=== PATIENT | female | born 1955 | race Caucasian/White ===

== ENCOUNTER 2019-01-15 16:32 | Emergency (ER) | payer OTHER ==
[~2019-01-15] VITALS: Ht 152.4 cm; Wt 67.2 kg
[~2019-01-15 16:32] MED LIST: AMLO-218 PO
[2019-01-15 16:38] VITALS: Ht 152.4 cm; Wt 67.2 kg
--- NOTE | 2019-01-15 18:35 | ERD ---
ER Documentation Chief Complaint Chief Complaint dizziness x 3 days today; increase blood pressure HPI The patient is a 63-year-old female, presenting to the ER because of dizziness this morning around 9 AM while she was eating, a similar symptom previously, denies blurred vision, syncope, near syncope, facial pain, neck pain, chest pain, dyspnea, abdominal pain, vomiting. She does not smoke nor drink. She used to take Norvasc 10 mg daily but stopped that about 2 years ago Past medical history: Hypertension, dyslipidemia Past surgical history: 2 ROS All systems reviewed and are negative except as per history of present illness. Medications Home Meds Active Scripts Amlodipine Besylate* (Norvasc*) 10 Mg Tablet, 10 MG PO DAILY, #30 TAB Prov:JAY DE LUNA MD 01/15/19 Allergies Allergies: Coded Allergies: No Known Allergy (Unverified , 01/15/19) Physical Exam Vitals Vital Signs Date Temp Pulse Resp B/P (MAP) Pulse Ox O2 O2 Flow FiO2 Time Delivery Rate 01/15/19 98.0 65 19 178/96 98 Room Air 19:57 (123) 01/15/19 98.0 59 20 203/92 97 16:38 (129) Physical Exam Const: No acute distress. Head: Atraumatic. Eyes: Normal Conjunctiva. ENT: Normal External Ears, Nose and Mouth. Neck: Full range of motion. No meningismus. Resp: Clear to auscultation bilaterally. Cardio: Regular rate and rhythm. Abd: Soft, non distended, normal bowel sounds, non tender. Skin: No petechiae or rashes. Back: No midline or flank tenderness. Ext: No cyanosis, or edema. Neur: Awake and alert. No focal deficit Psych: Normal Mood and Affect. Result Diagram: 01/15/19185401/15/191854 Results 24 hrs Laboratory Tests Test 01/15/19 18:50 01/15/19 18:55 Bedside Glucose 108 mg/dL White Blood Count 8.4 10^3/ul Red Blood Count 4.82 10^6/ul Hemoglobin 13.9 g/dl Hematocrit 43.9 % Mean Corpuscular Volume 91.1 fl Mean Corpuscular Hemoglobin 28.8 pg Mean Corpuscular Hemoglobin Concent 31.7 g/dl Red Cell Distribution Width 13.5 % Platelet Count 244 10^3/UL Mean Platelet Volume 10.8 fl Immature Granulocytes % 0.100 % Neutrophils % 36.8 % Lymphocytes % 52.7 % Monocytes % 7.9 % Eosinophils % 1.4 % Basophils % 1.1 % Nucleated Red Blood Cells % 0.0 /100WBC Immature Granulocytes # 0.010 10^3/ul Neutrophils # 3.1 10^3/ul Lymphocytes # 4.4 10^3/ul Monocytes # 0.7 10^3/ul Eosinophils # 0.1 10^3/ul Basophils # 0.1 10^3/ul Nucleated Red Blood Cells # 0.0 10^3/ul Prothrombin Time 12.7 Sec Prothrombin Time Ratio 1.0 INR International Normalized Ratio 0.94 Activated Partial Thromboplast Time 30.9 Sec Sodium Level 143 mmol/L Potassium Level 3.9 mmol/L Chloride Level 105 mmol/L Carbon Dioxide Level 28 mmol/L Anion Gap 10 Blood Urea Nitrogen 13 mg/dl Creatinine 0.59 mg/dl Est Glomerular Filtrat Rate mL/min > 60 mL/min Glucose Level 106 mg/dl Calcium Level 9.3 mg/dl Troponin I < 0.012 ng/ml Current Medications Medications Dose Sig/Masood Start Time Status Last (Trade) Ordered Route PRN Stop Time Admin Dose Reason Admin Hydralazine 10 mg ONCE ONCE 01/15/19 DC 01/15/19 HCl IV 19:00 01/15/19 18:57 (Apresoline) 19:01 Procedures/[place] [id number] Radiology Main Line: [phone] DIAGNOSTIC IMAGING REPORT Patient: SHAUN BANEGAS : 1955 Age: 63 Sex: F [id number] [id number] DOS: 01/15/19 1842 Ordering MD: JAY DE LUNA MD Location: E/R Room/Bed: PROCEDURE: CT Brain without contrast. CLINICAL INDICATION: Syncope TECHNIQUE: Serial axial computed tomographic images of the brain was performed on a multidetector CT scanner from the skull base through the vertex without contrast. CTDlvol = 39 mGy and DLP = 699 mGy-cm. One of the following 3 dose reduction techniques were used: Automated exposure control; adjustment of the mA and/or kV according to patient size; or use of iterative reconstruction technique. DICOM images are available. COMPARISON: None. FINDINGS: There is no fracture. There is age appropriate central and peripheral atrophy. There is no midline shift. There is no acute stroke. There is mild degree of s upratentorial periventricular and subcortical white matter hypodensities. There is 4 mm diameter extra-axial calcification in the anterior superior aspect the right frontal lobe underlying the calvarium, likely a calcified meningioma, without significant mass effect. There is no adjacent intraparenchymal edema. No acute intracranial hemorrhage or abnormal extra-axial fluid collection. Visualized paranasal sinuses are clear. IMPRESSION: 1. No fracture. 2. No acute post-traumatic intracranial abnormality. 3. Nonspecific white matter changes most commonly seen with small vessel disease. 4. Small incidental 4 mm extra-axial calcification right frontal region likely a small meningioma without significant mass effect. RPTAT: HMVK .Jay Marino MD MD Date Time Electronically viewed and signed by .Jay Marino MD, MD on 01/15/2019 19:31 .K/ CC: JAY DEL UNA MD [id number] MEDICAL MAKING DECISION: The patient is a 63-year-old female, presenting with a cute dizziness, most likely due to acute hypertensive urgency. She was treated with hydralazine 10 mg IV with good response, her dizziness went away. She has been in the emergency department for couple hours with any recurrent symptoms The differential diagnoses considered include but are not limited to central causes such as cerebellar infarct, cerebellar hemorrhage, cerebellar tumor, acoustic neuroma, peripheral causes such as benign positional vertigo, labyrinthitis, medication, Meniere's disease. Departure Diagnosis: Primary Impression: Dizziness Additional Impression: Hypertensive urgency Condition: Good Comments She was discharged with Norvasc 10 mg daily I discussed the findings with the patient. I advised the patient to follow-up with the primary physician in about 1-2 days, sooner if needed and return if any concern. Disclaimer: Inadvertent spelling and grammatical errors are likely due to EHR/dictation software use and do not reflect on the overall quality of patient care. Also, please note that the electronic time recorded on this note does not necessarily reflect the actual time of the patient encounter. JAY DE LUNA MD Jan 15, 2019 18:34
[2019-01-15] MEDS ORDERED: hydrALAzine 20 MG INJ IV ONE (19:00)
[2019-01-15 19:57] VITALS: BP 178/96; PULSE 65; RESP 19
== END 2019-01-15 20:19 | disposition home or self-care (01) ==
LOC: E/R 16:32
DX: I16.0 Hypertensive urgency (principal); R40.2142 Coma scale, eyes open, spontaneous, at arrival to emergency department; R40.2362 Coma scale, best motor response, obeys commands, at arrival to emergency department; R40.2252 Coma scale, best verbal response, oriented, at arrival to emergency department; I10 Essential (primary) hypertension
CPT/HCPCS: 36415; 70450; 80048; 82962; 84484; 85025; 85610; 85730; 93005; 96374; J0360; Z7502